=== PATIENT | male | born 2000 | race Caucasian/White ===

== ENCOUNTER 2018-08-02 19:24 | Emergency (ER) | payer SELFPAY ==
[~2018-08-02] VITALS: Ht 160 cm; Wt 81.8 kg
[2018-08-02 19:48] VITALS: BP 104/82
== END 2018-08-02 21:14 | disposition home or self-care (01) ==
LOC: EMS 19:25
DX: K11.20 Sialoadenitis, unspecified (principal); K08.89 Other specified disorders of teeth and supporting structures